=== PATIENT | male | born 1990 | race Hispanic/Latino ===

== ENCOUNTER 2017-02-18 07:36 | Observation (INO) | payer BC ==
[2017-02-18 07:41] VITALS: BMI 26.1
[2017-02-18] MEDS ORDERED: Sodium Chloride 0.9% 1,000 ML IV STA (07:55)
--- NOTE | 2017-02-18 08:00 | ED PDOC ---
HPI: Psych/Substance Abuse Time Seen by Provider: 02/18/17 07:39 Chief Complaint (Provider): Substance use History Per: Patient, Family Onset/Duration Of Symptoms: Hrs Current Symptoms Are (Timing): Still Present Additional Complaint(s): 27 y/o male presents to the emergency department with lightheadedness and palpitations after ingesting 8 percocet pills for recreational use. As per history from girlfriend, patient took 4 pills yesterday morning, 4 pills around 18:30 last night, and then an exotic tea containing THC around 02:00 am. He then woke up around 06:30 this morning with his heart racing. Denies alcohol use , chest pain, shortness of breath, dizziness, weakness, nausea, vomiting, diarrhea, leg pain, suicidal or homicidal ideation. Of note, patient was seen in this facility on 06/07/2016 for similar symptoms, heart was also racing at that time. PMD: Dr Olmedo ([facility]) Past Medical History Reviewed: Historical Data, Nursing Documentation, Vital Signs Vital Signs: Last Vital Signs Temp 97.4 F L 02/18/17 07:42 Pulse 133 H 02/18/17 07:42 Resp 20 02/18/17 07:42 BP 155/86 H 02/18/17 07:42 Pulse Ox 99 02/18/17 07:42 - Medical History PMH: Hypercholesterolemia - Surgical History Surgical History: No Surg Hx - Family History Family History: States: Unknown Family Hx - Living Arrangements Living Arrangements: With Family - Social History Current smoker - smoking cessation education provided: Yes Alcohol: None Drugs: Cannabis, Other - Allergies Allergies/Adverse Reactions: Allergies Allergy/AdvReac Type Severity Reaction Status Date / Time No Known Allergies Allergy Verified 06/07/16 18:12 Review of Systems ROS Statement: Except As Marked, All Systems Reviewed And Found Negative Constitutional: Negative for: Weakness Cardiovascular: Positive for: Palpitations, Light Headedness. Negative for: Chest Pain Respiratory: Negative for: Shortness of Breath Gastrointestinal: Negative for: Nausea, Vomiting, Diarrhea Musculoskeletal: Negative for: Leg Pain Neurological: Negative for: Dizziness Psych: Negative for: Suicidal ideation (or homicidal ideation) Physical Exam - Reviewed Nursing Documentation Reviewed: Yes Vital Signs Reviewed: Yes - Physical Exam Appears: Positive for: Non-toxic, No Acute Distress Head Exam: Positive for: ATRAUMATIC, NORMAL INSPECTION, NORMOCEPHALIC Skin: Positive for: Normal Color, Warm, Dry Eye Exam: Positive for: EOMI, PERRL, Other (3+ dilated pupils bilaterally). Negative for: Normal appearance ENT: Positive for: Normal ENT Inspection. Negative for: Pharyngeal Erythema Neck: Positive for: Normal, Painless ROM, Supple Cardiovascular/Chest: Positive for: Tachycardia (W. regular rhythm). Negative for: Regular Rate, Rhythm, Murmur Respiratory: Positive for: Normal Breath Sounds. Negative for: Accessory Muscle Use, Respiratory Distress Gastrointestinal/Abdominal: Positive for: Normal Exam, Soft. Negative for: Tenderness Back: Positive for: Normal Inspection. Negative for: L CVA Tenderness, R CVA Tenderness Extremity: Positive for: Normal ROM. Negative for: Tenderness, Pedal Edema, Calf Tenderness, Swelling Neurologic/Psych: Positive for: Alert, sleeper cutter II-XII, Oriented (x3). Negative for : Motor/Sensory Deficits, Facial Droop - Laboratory Results Result Diagrams: 02/18/17 08:00 02/18/17 08:00 Interpretation Of Abn Labs: cannabis - ECG ECG: Positive for: Interpreted By Me, Viewed By Me ECG Rhythm: Positive for: Sinus Tachycardia O2 Sat by Pulse Oximetry: 99 (RA) Pulse Ox Interpretation: Normal - Progress ED Course And Treament: 1208: Stable. AAOx3. Pain free. Tolerated PO. Fu with pcp. Medical Decision Making Medical Decision Making: Time: 07:55 Initial impression: Tachycardia status post substance use Initial plan: --EKG --Acetaminophen --Alcohol Serum --CMP --Drug Screen, Urine --Magnesium --Phosphorous --Salicylate --Troponin I --Urine DIP --CBC w/ diff --Sodium Chloride 1L IV 1,000 mls/hr --Any further documentation will be included within ED Obs section of chart. Scribe Attestation: Documented by Hannah Lockhart, acting as a scribe for Remi Carnes MD. Provider Scribe Attestation: All medical record entries made by the Scribe were at my direction and personally dictated by me. I have reviewed the chart and agree that the record accurately reflects my personal performance of the history, physical exam, medical decision making, and the department course for this patient. I have also personally directed, reviewed, and agree with the discharge instructions and disposition. ED OBSERVATION Discharge: Yes Date of observation admission: 02/18/17 Time of observation admission: 07:55 - Observation admission statement Patient is being placed in observation because:: tachycardia - Goals of Observation Goals of observation are:: resolution of tachycardia. - Progress Note Progress Note: 02/18/17 08:28 --PTT and Prothrombin --Nurse spoke to Poison Control who want symptomatic care provided to patient and advised for CPK test completion. --CPK ordered. 02/18/17 09:25 --Patient resting comfortably. Pending results from blood work-up. 02/18/17 10:55 --Patient resting comfortably. Pending reevaluation. Disposition - Clinical Impression Clinical Impression: Cannabis abuse, Palpitations - Patient ED Disposition Is Patient to be Admitted: No Counseled Patient/Family Regarding: Studies Performed, Diagnosis, Need For Followup - Disposition Disposition: Routine/Home Disposition Time: 12:09 Condition: STABLE
[2017-02-18 08:22] LABS: BASO % 0.4 % (0.0-2.0); EOS # 0.1 K/uL (0.0-0.7); EOS % 0.9 % (0.0-4.0); HEMATOCRIT 48.5 % (35.0-51.0); LYMPH # 2.6 K/uL (1.0-4.3); LYMPH % 41.5 % (20.0-40.0); MEAN CORPUSCULAR HEMOGLOBIN 31.3 pg (27.0-31.0); MEAN CORPUSCULAR HGB CONC 33.6 g/dL (33.0-37.0); MEAN PLATELET VOLUME 8.6 fl (7.2-11.7); MONO # 0.7 K/uL (0.0-0.8); MONO % 10.9 % (0.0-10.0); NEUT # 2.9 K/uL (1.8-7.0); NEUT % 46.3 % (50.0-75.0); NRBC % 0.1 % (0.0-0.0); RED CELL DISTRIBUTION WIDTH 12.5 % (11.5-14.5); WHITE BLOOD COUNT 6.2 K/uL (4.8-10.8)
[2017-02-18 08:42] LABS: GLUCOSE,RANDOM 105 mg/dL (75-110)
[2017-02-18 08:43] LABS: BLOOD UREA NITROGEN 13 mg/dl (9-20); CALCIUM 9.9 mg/dL (8.4-10.2); CARBON DIOXIDE 30 mmol/L (22-30); CHLORIDE 106 mmol/L (98-107); GFR AFRICAN-AMERICAN > 60; POTASSIUM 4.5 MMOL/L (3.6-5.0); SODIUM 146 mmol/l (132-148)
[2017-02-18 08:44] LABS: ALB/GLOB RATIO 1.2 (1.0-2.1); ALKALINE PHOSPHATASE 80 U/L (38-126); ALT/SGPT 29 U/L (21-72); AST/SGOT 30 U/L (17-59); BILIRUBIN,TOTAL 1.1 mg/dl (0.2-1.3); MAGNESIUM 1.9 MG/DL (1.6-2.3); PHOSPHOROUS 4.1 mg/dl (2.5-4.5); TOTAL PROTEIN 8.5 G/DL (6.3-8.2)
[2017-02-18 08:52] LABS: ALCOHOL SERUM < 10 mg/dl (0-10)
[2017-02-18 08:57] LABS: PARTIAL THROMBOPLASTIN TIME 32.2 Seconds (25.6-37.1)
[2017-02-18 09:52] VITALS: O2SAT 99
[2017-02-18 12:33] VITALS: BP 110/62; PULSE 68; RESP 18; TEMP 98
--- NOTE | 2017-02-18 23:03 | CARD ---
APPROVED REPORT EKG Measurement Heart [id number] <Conclusion> Sinus tachycardia Possible Left atrial enlargement Borderline ECG
== END 2017-02-18 12:10 | disposition home or self-care (01) ==
LOC: H.ER 07:36 → H.EROBSV 07:54
PROVIDERS: ADMIT Emergency Medicine; ATTEND Emergency Medicine
DX: F12.10 Cannabis abuse, uncomplicated (principal); E78.00 Pure hypercholesterolemia, unspecified; F17.200 Nicotine dependence, unspecified, uncomplicated; R00.0 Tachycardia, unspecified; R00.2 Palpitations; R42 Dizziness and giddiness
CPT/HCPCS: 80053; 82550; 83735; 84100; 84484; 85025; 85610; 85730; 93005; 96360; 99285; G0378; G0480; J7040